=== PATIENT | male | born 2000 | race Caucasian/White ===

== ENCOUNTER 2023-11-22 18:05 | Emergency (ER) | payer BC ==
[~2023-11-22] VITALS: Ht 177.8 cm; Wt 77.1 kg
[2023-11-22 18:17] VITALS: BP 112/89; TEMP 97.8; O2SAT 100
== END 2023-11-22 19:45 | disposition home or self-care (01) ==
LOC: ER 18:11
DX: S06.0X0A Concussion without loss of consciousness, initial encounter (principal); R11.0 Nausea; W22.8XXA Striking against or struck by other objects, initial encounter; Y93.89 Activity, other specified; Y92.89 Other specified places as the place of occurrence of the external cause; Y99.8 Other external cause status
CPT/HCPCS: 70450-TC